=== PATIENT | male | born 1985 | race African-American/Black ===

== ENCOUNTER 2021-03-07 02:36 | Emergency (ER) | payer OTHER ==
[~2021-03-07] VITALS: Ht 167.6 cm; Wt 95.3 kg
[~2021-03-07 02:36] MED LIST: ACCUNEB SO1.25 MG/1 INH; PROAIR HFA8.5 GM INH
[2021-03-07] MEDS ORDERED: PROTONIX40 M2 PO (02:46)
[2021-03-07] MEDS ORDERED: BUDESONIDE-FO10.2 G1 INH (02:47)
[2021-03-07] MEDS ORDERED: PROAIR HFA8.5 GM INH (04:15)
[2021-03-07] MEDS ORDERED: PREDNISONE 10 M10 MG PO (04:15)
[2021-03-07 04:24] VITALS: BP 134/59
--- NOTE | 2021-03-08 15:08 | EKG ---
[place] [address] [facility] [place] [address] ELECTROCARDIOGRAM REPORT Name: CALI ALEMAN [id number] Admission: 03/07/21 Attend Phys: Discharge: 03/07/21 Date of : 81 Report #: [id number] [facility] ED Test Date: 2021-03-07 Test Time: 02:39:52 Pat Name: CALI ALEMAN Department: Room: Gender: Prison Psychiatrist: MICHELE : 1985 Requested By: Tal Vaughan Order Number: [id number] MD: Bo Rosas Measurements Intervals [place] Rate: 69 P: 34 SC: 145 QRS: 24 QRSD: 88 T: 28 QT: 397 QTc: 426 Interpretive Statements Sinus rhythm Compared to ECG 06/29/2015 07:31:54 No significant changes Electronically Signed On 03-08-2021 15:08:03 CDT by Bo Rosas [email or web address] <ELECTRONICALLY SIGNED> By: Bo Rosas MD, [facility] 03/08/21 [id number] Bo Rossa MD, FACC /EPI
== END 2021-03-07 04:27 | disposition home or self-care (01) ==
LOC: ER 02:36
DX: J45.909 Unspecified asthma, uncomplicated (principal); K21.9 Gastro-esophageal reflux disease without esophagitis; Z88.8 Allergy status to other drugs, medicaments and biological substances; Z88.0 Allergy status to penicillin